=== PATIENT | female | born 1980 | race Caucasian/White ===

== ENCOUNTER 2020-09-05 11:11 | Emergency (ER) | payer SELFPAY ==
[2020-09-05 11:24] VITALS: BP 109/59; PULSE 57; RESP 16; TEMP 36.6; O2SAT 100; BMI 22.8
== END 2020-09-05 13:13 | disposition left against medical advice (07) ==
PROVIDERS: Emergency Provider Emergency Medicine; PCP Physician Assistant
CPT/HCPCS: 99281